=== PATIENT | male | born 1965 | race Caucasian/White ===

== ENCOUNTER 2017-02-17 10:29 | Emergency (ER) | payer OTHER | END 2017-02-17 11:36 | disposition home or self-care (01) | LOC: ER 10:29 | DX: K02.9 Dental caries, unspecified (principal); J44.9 Chronic obstructive pulmonary disease, unspecified; F32.9 Major depressive disorder, single episode, unspecified; F41.9 Anxiety disorder, unspecified; F17.210 Nicotine dependence, cigarettes, uncomplicated; Z88.1 Allergy status to other antibiotic agents; Z88.6 Allergy status to analgesic agent ==

== ENCOUNTER 2017-04-08 15:13 | Emergency (ER) | payer OTHER | END 2017-04-08 17:40 | disposition home or self-care (01) | LOC: ER 15:13 | DX: L03.116 Cellulitis of left lower limb (principal); J44.9 Chronic obstructive pulmonary disease, unspecified; F32.9 Major depressive disorder, single episode, unspecified; F41.9 Anxiety disorder, unspecified; F17.210 Nicotine dependence, cigarettes, uncomplicated; Z88.1 Allergy status to other antibiotic agents; Z88.6 Allergy status to analgesic agent | CPT/HCPCS: 36415; 96365; 96375; J1200; J3370 ==